=== PATIENT | female | born 1985 | race Hispanic/Latino ===

== ENCOUNTER 2021-04-03 17:13 | Emergency (ER) | payer OTHER, SELFPAY | END 2021-04-03 20:36 | disposition home or self-care (01) | LOC: CSHERS 17:13 | DX: O20.0 Threatened abortion (principal); O20.8 Other hemorrhage in early pregnancy; O24.419 Gestational diabetes mellitus in pregnancy, unspecified control; O10.911 Unspecified pre-existing hypertension complicating pregnancy, first trimester; O09.521 Supervision of elderly multigravida, first trimester; Z3A.13 13 weeks gestation of pregnancy ==

== ENCOUNTER 2021-05-19 19:32 | Day surgery (SDC) | payer OTHER ==
[2021-05-19 20:11] VITALS: BMI 38.1
[2021-05-19] MEDS ORDERED: Magnesium Sulfate 20 gm/500 ml 0 GM/0 ML BAG ONE (20:40)
[2021-05-19] MEDS ORDERED: hydrALAZINE 20 MG/ML VIAL ONE (20:47)
[2021-05-19] MEDS ORDERED: Labetalol HCl 100 MG/20 ML VIAL ONE (20:48)
[2021-05-19] MEDS ORDERED: Promethazine 25 MG TAB PO ONE (21:30)
[2021-05-19] MEDS ORDERED: Acetaminophen 500 MG TAB PO SCH (21:30)
[2021-05-19] MEDS ORDERED: diphenhydrAMINE 25 MG CAP PO SCH (21:30)
[2021-05-19] MEDS ORDERED: Sodium Chloride 0.9% 1,000 ML IV SCH (21:30)
[2021-05-19 21:53] LABS: #Eosinphils 0.1 10x3/uL (0.0-0.5); #Monocytes 0.3 10x3/uL (0.0-1.1); #Neutrophils 8.9 10x3/uL (1.5-8.4); %Basophils 0.2 % (0.0-2.0); %Eosinophils 0.9 % (0.0-6.0); %Lymphocytes 13.2 % (18.0-47.0); %Monocytes 3.2 % (0.0-10.0); %Neutrophils 82.1 % (40.0-75.0); Hemoglobin 10.1 g/dL (12.0-15.5); Mean Corpuscular HGB CONC 30.6 g/dL (32.0-36.0); Mean Corpuscular Volume 78.4 fl (81.6-98.3); Mean Platelet Volume 10.6 fl (7.4-10.4); Platelet Count 255 10x3/uL (150-450); RBC Distribution Width 19.9 % (11.5-14.5); Red Blood Cell (RBC) Count 4.21 10x6/uL (3.90-5.03); White Blood Cell (WBC) Count 10.8 10x3/uL (3.5-10.5)
[2021-05-19 22:07] LABS: ALT (SGPT) 10 U/L (8-55); AST (SGOT) 13 U/L (5-34); Albumin 3.7 g/dL (3.5-5.0); Alkaline Phosphatase 50 U/L (40-110); Anion Gap 15 mmol/L (10-20); BUN (Urea Nitrogen) 5 mg/dL (7.0-18.7); Bilirubin, Total 0.4 mg/dL (0.2-1.2); Calc. Creatinine Clearance 225 mL/min (70-130); Calcium 8.5 mg/dL (7.8-10.44); Carbon Dioxide 18 mmol/L (22-29); Chloride 108 mmol/L (98-107); Globulin 3.5 g/dL (2.4-3.5); Glucose 83 mg/dL (70-105); Potassium 3.6 mmol/L (3.5-5.1); Protein, Total 7.2 g/dL (6.0-8.3); Sodium 137 mmol/L (136-145)
[2021-05-19 22:50] LABS: Creatinine, Urine 135.99 mg/dL (47-110)
[2021-05-20 12:09] LABS: Hemoglobin A1c 5.4 % (4.0-6.0)
== END 2021-05-19 23:48 | disposition home or self-care (01) ==
LOC: CSHLD/OP 19:32
PROVIDERS: ATTEND Obstetrics & Gynecology
DX: O10.912 Unspecified pre-existing hypertension complicating pregnancy, second trimester (principal); O99.891 Other specified diseases and conditions complicating pregnancy; R51.9 Headache, unspecified; H53.459 Other localized visual field defect, unspecified eye; R10.11 Right upper quadrant pain; R10.2 Pelvic and perineal pain; O09.522 Supervision of elderly multigravida, second trimester; O99.212 Obesity complicating pregnancy, second trimester; Z3A.19 19 weeks gestation of pregnancy
CPT/HCPCS: 36415; 80053; 82570; 83036; 84156; 85025; 96360; 96361; 99284; J0360; J3475; Q0169

== ENCOUNTER 2021-06-30 23:32 | Day surgery (SDC) | payer OTHER ==
[2021-06-30 23:55] VITALS: BMI 39.1
[2021-07-01] MEDS ORDERED: hydrALAZINE 20 MG/ML VIAL SLOW IVP PRN (00:25)
[2021-07-01] MEDS ORDERED: Calcium Carbonate 500 MG ChewTAB PO PRN (00:26)
[2021-07-01] MEDS ORDERED: Lactated Ringer's 1,000 ML IV SCH (00:30)
[2021-07-01 01:36] LABS: Creatinine, Urine 33.39 mg/dL (47-110); Protein, Urine Random Quant Less than 10 mg/dL (1-14)
[2021-07-01 01:37] LABS: ALT (SGPT) 10 U/L (8-55); AST (SGOT) 16 U/L (5-34); Albumin 3.8 g/dL (3.5-5.0); Alkaline Phosphatase 70 U/L (40-110); Anion Gap 13 mmol/L (10-20); BUN (Urea Nitrogen) 8 mg/dL (7.0-18.7); Bilirubin, Total 0.1 mg/dL (0.2-1.2); Calc. Creatinine Clearance 231 mL/min (70-130); Calcium 8.9 mg/dL (7.8-10.44); Carbon Dioxide 19 mmol/L (22-29); Chloride 108 mmol/L (98-107); Globulin 3.4 g/dL (2.4-3.5); Glucose 103 mg/dL (70-105); Potassium 4.4 mmol/L (3.5-5.1); Protein, Total 7.2 g/dL (6.0-8.3); Sodium 136 mmol/L (136-145)
[2021-07-01 02:09] LABS: #Basophils 0.1 10x3/uL (0.0-0.2); #Eosinphils 0.2 10x3/uL (0.0-0.5); #Monocytes 0.7 10x3/uL (0.0-1.1); #Neutrophils 5.3 10x3/uL (1.5-8.4); %Basophils 0.6 % (0.0-2.0); %Eosinophils 1.8 % (0.0-6.0); %Lymphocytes 29.2 % (18.0-47.0); %Monocytes 7.7 % (0.0-10.0); %Neutrophils 60.4 % (40.0-75.0); Hemoglobin 10.2 g/dL (12.0-15.5); Mean Corpuscular HGB CONC 31.9 g/dL (32.0-36.0); Mean Corpuscular Hemoglobin 25.5 pg (27.0-33.0); Mean Platelet Volume 11.8 fl (7.4-10.4); Platelet Count 251 10x3/uL (150-450); RBC Distribution Width 18.7 % (11.5-14.5); White Blood Cell (WBC) Count 8.8 10x3/uL (3.5-10.5)
== END 2021-07-01 02:25 | disposition home or self-care (01) ==
LOC: CSHLD/OP 23:32
PROVIDERS: ATTEND Family Medicine
DX: O99.891 Other specified diseases and conditions complicating pregnancy (principal); R10.13 Epigastric pain; M54.6 Pain in thoracic spine; N89.8 Other specified noninflammatory disorders of vagina; R51.9 Headache, unspecified; O13.2 Gestational [pregnancy-induced] hypertension without significant proteinuria, second trimester; O09.522 Supervision of elderly multigravida, second trimester; Z3A.26 26 weeks gestation of pregnancy; Z79.899 Other long term (current) drug therapy
CPT/HCPCS: 80053; 82570; 84156; 85025; 87480; 87510; 87660; 96360; 96361; 99285

== ENCOUNTER 2021-07-27 09:43 | Day surgery (SDC) | payer OTHER, SELFPAY ==
[2021-07-27 10:24] VITALS: BMI 39.2
[2021-07-27] MEDS ORDERED: hydrALAZINE 20 MG/ML VIAL SLOW IVP PRN (11:37)
[2021-07-27] MEDS ORDERED: Metoclopramide HCl 10 MG/2 ML VIAL IVP SCH (11:45)
[2021-07-27] MEDS ORDERED: Lactated Ringer's 1,000 ML IV SCH (11:45)
[2021-07-27] MEDS ORDERED: diphenhydrAMINE 25 MG, Admixture Fee 1 EACH in Sodium Chloride 0.9% 50 ML IVPB SCH (12:00)
[2021-07-27] MEDS ORDERED: diphenhydrAMINE 50 MG/ML VIAL IVP SCH (12:00)
== END 2021-07-27 13:08 | disposition home or self-care (01) ==
LOC: CSHLD/OP 09:43
PROVIDERS: ATTEND Obstetrics & Gynecology
DX: O99.353 Diseases of the nervous system complicating pregnancy, third trimester (principal); G43.909 Migraine, unspecified, not intractable, without status migrainosus; O10.913 Unspecified pre-existing hypertension complicating pregnancy, third trimester; O24.410 Gestational diabetes mellitus in pregnancy, diet controlled; O23.43 Unspecified infection of urinary tract in pregnancy, third trimester; N39.0 Urinary tract infection, site not specified; O09.523 Supervision of elderly multigravida, third trimester; Z3A.29 29 weeks gestation of pregnancy; Z79.2 Long term (current) use of antibiotics; Z79.899 Other long term (current) drug therapy
CPT/HCPCS: 96360; 96372; 99282; J1200; J2765

== ENCOUNTER 2021-09-21 12:37 | Day surgery (SDC) | payer OTHER, SELFPAY ==
[2021-09-21 13:09] VITALS: BMI 40.0
[2021-09-21] MEDS ORDERED: hydrALAZINE 20 MG/ML VIAL SLOW IVP PRN (13:35)
[2021-09-21] MEDS ORDERED: Acetaminophen 500 MG TAB PO SCH (14:00)
[2021-09-21 14:09] LABS: #Eosinphils 0.1 10x3/uL (0.0-0.5); #Monocytes 0.4 10x3/uL (0.0-1.1); #Neutrophils 5.1 10x3/uL (1.5-8.4); %Basophils 0.3 % (0.0-2.0); %Eosinophils 1.2 % (0.0-6.0); %Lymphocytes 23.5 % (18.0-47.0); %Monocytes 5.1 % (0.0-10.0); %Neutrophils 69.6 % (40.0-75.0); Hemoglobin 10.1 g/dL (12.0-15.5); Mean Corpuscular HGB CONC 32.1 g/dL (32.0-36.0); Mean Corpuscular Hemoglobin 25.4 pg (27.0-33.0); Mean Corpuscular Volume 79.3 fl (81.6-98.3); Mean Platelet Volume 11.7 fl (7.4-10.4); Platelet Count 234 10x3/uL (150-450); RBC Distribution Width 16.4 % (11.5-14.5); Red Blood Cell (RBC) Count 3.97 10x6/uL (3.90-5.03); White Blood Cell (WBC) Count 7.3 10x3/uL (3.5-10.5)
[2021-09-21 14:25] LABS: ALT (SGPT) 15 U/L (8-55); AST (SGOT) 16 U/L (5-34); Albumin 3.4 g/dL (3.5-5.0); Alkaline Phosphatase 127 U/L (40-110); Anion Gap 15 mmol/L (10-20); BUN (Urea Nitrogen) 5 mg/dL (7.0-18.7); Bilirubin, Total 0.3 mg/dL (0.2-1.2); Calc. Creatinine Clearance 227 mL/min (70-130); Calcium 8.9 mg/dL (7.8-10.44); Carbon Dioxide 19 mmol/L (22-29); Chloride 106 mmol/L (98-107); Globulin 3.3 g/dL (2.4-3.5); Glucose 80 mg/dL (70-105); Potassium 3.7 mmol/L (3.5-5.1); Protein, Total 6.7 g/dL (6.0-8.3); Sodium 136 mmol/L (136-145)
[2021-09-21 14:47] LABS: Creatinine, Urine 89.86 mg/dL (47-110)
== END 2021-09-21 15:28 | disposition home or self-care (01) ==
LOC: CSHLD/OP 12:37
PROVIDERS: ATTEND Student in an Organized Health Care Education/Training Program
DX: O10.913 Unspecified pre-existing hypertension complicating pregnancy, third trimester (principal); O24.415 Gestational diabetes mellitus in pregnancy, controlled by oral hypoglycemic drugs; O09.523 Supervision of elderly multigravida, third trimester; O99.213 Obesity complicating pregnancy, third trimester; O99.013 Anemia complicating pregnancy, third trimester; D50.9 Iron deficiency anemia, unspecified; O36.63X0 Maternal care for excessive fetal growth, third trimester, not applicable or unspecified; Z3A.37 37 weeks gestation of pregnancy; Z79.899 Other long term (current) drug therapy
CPT/HCPCS: 80053; 82570; 84156; 85025

== ENCOUNTER 2021-09-23 18:00 | Inpatient (IN) | payer MEDICAID, OTHER ==
[2021-09-23 18:38] VITALS: BMI 40.0
[2021-09-23] MEDS ORDERED: Ondansetron PF 4 MG/2 ML Vial IVP PRN (21:20)
[2021-09-23] MEDS ORDERED: Acetaminophen 500 MG TAB PO PRN (21:20)
[2021-09-23] MEDS ORDERED: hydrALAZINE 20 MG/ML VIAL SLOW IVP PRN (21:20)
[2021-09-23] MEDS ORDERED: Calcium Gluc 4.6 MEQ/10 ML (100 MG/ML) SLOW IVP PRN (21:20)
[2021-09-23] MEDS ORDERED: Ibuprofen 800 MG TAB PO PRN (21:20)
[2021-09-23] MEDS ORDERED: Promethazine HCl 25 MG/ML VIAL IM PRN (21:20)
[2021-09-23] MEDS ORDERED: Lidocaine 1% (PF) 30 ML VIAL SC PRN (21:20)
[2021-09-23] MEDS ORDERED: NS w/ Oxytocin 30 units 500 ML IV SCH ×2 (21:30)
[2021-09-23] MEDS ORDERED: Misoprostol 200 MCG TAB PR PRN (21:58)
[2021-09-23 22:01] LABS: Platelet Count 256 10x3/uL (150-450)
[2021-09-23 22:02] LABS: Hemoglobin 10.5 g/dL (12.0-15.5); Mean Corpuscular HGB CONC 32.3 g/dL (32.0-36.0); Mean Corpuscular Hemoglobin 25.7 pg (27.0-33.0); Mean Corpuscular Volume 79.7 fl (81.6-98.3); Mean Platelet Volume 13.2 fl (7.4-10.4); RBC Distribution Width 16.3 % (11.5-14.5); Red Blood Cell (RBC) Count 4.08 10x6/uL (3.90-5.03)
[2021-09-23 22:20] LABS: ALT (SGPT) 16 U/L (8-55); AST (SGOT) 18 U/L (5-34); Albumin 3.5 g/dL (3.5-5.0); Alkaline Phosphatase 130 U/L (40-110); Anion Gap 15 mmol/L (10-20); BUN (Urea Nitrogen) 12 mg/dL (7.0-18.7); Bilirubin, Total 0.2 mg/dL (0.2-1.2); Calc. Creatinine Clearance 164 mL/min (70-130); Calcium 8.5 mg/dL (7.8-10.44); Carbon Dioxide 21 mmol/L (22-29); Chloride 104 mmol/L (98-107); Globulin 3.1 g/dL (2.4-3.5); Glucose 88 mg/dL (70-105); Potassium 4.4 mmol/L (3.5-5.1); Protein, Total 6.6 g/dL (6.0-8.3); Sodium 136 mmol/L (136-145)
[2021-09-23 22:41] LABS: Hep B Surf Ag Non-Reactive S/CO (NonReactive); Syphilis Antibody Nonreactive (Nonreactive); Syphilis Antibody Index 0.05 S/CO (<1.00 Non-Reactive)
[2021-09-23 22:59] LABS: HBSAg Index 0.15 S/CO (0-0.99)
[2021-09-23] MEDS: Lactated Ringer's 1,000 ML IV SCH (23:23)
[2021-09-24] MEDS ORDERED: NS w/ Oxytocin 30 units 500 ML IV SCH ×2 (00:30→09:00)
[2021-09-24] MEDS ORDERED: Fentanyl 2 mcg/Bup 0.1% Cadd 100 ML ONE (03:03)
[2021-09-24] MEDS: Lactated Ringer's 1,000 ML IV SCH (04:01)
[2021-09-24] MEDS ORDERED: Nitroglycerin 50 MG/250 ML BOT IVPB PRN (04:02)
[2021-09-24] MEDS ORDERED: Labetalol HCl 100 MG TAB PO SCH ×3 (04:30→21:00)
[2021-09-24] MEDS ORDERED: Nitroglycerin 50 MG/250 ML BOT 250 ML IVPB SCH (05:00)
[2021-09-24] MEDS ORDERED: Diphenoxylate HCl/Atropine Tablet PO PRN (07:41)
[2021-09-24] MEDS ORDERED: Carboprost 250 MCG/ML AMP ONE (07:45)
[2021-09-24] MEDS ORDERED: Carboprost 250 MCG/ML AMP IM SCH (07:45)
[2021-09-24] MEDS ORDERED: Boostrix 0.5 ML (Tdap) VIAL IM ONE (09:00)
[2021-09-24] MEDS ORDERED: hydrALAZINE 20 MG/ML VIAL SLOW IVP PRN (09:00)
[2021-09-24] MEDS ORDERED: Ondansetron PF 4 MG/2 ML Vial IVP PRN (09:00)
[2021-09-24] MEDS ORDERED: Milk Of Magnesia 30 ML UDCUP PO PRN (09:00)
[2021-09-24] MEDS ORDERED: diphenhydrAMINE 25 MG CAP PO PRN (09:00)
[2021-09-24] MEDS ORDERED: Benzocaine-Menthol 82.5 ML CAN TOP PRN (09:00)
[2021-09-24] MEDS ORDERED: Misoprostol 200 MCG TAB VAG PRN (09:00)
[2021-09-24] MEDS ORDERED: Preparation H Ointment 28 GM TUBE PR PRN (09:00)
[2021-09-24] MEDS ORDERED: Lanolin Ointment 7 GM TUBE TOP PRN (09:00)
[2021-09-24] MEDS ORDERED: Bisacodyl 10 MG SUPP PR PRN (09:00)
[2021-09-24] MEDS ORDERED: Ferrous Sulfate 325 MG TAB PO SCH (09:15)
[2021-09-24] MEDS: Docusate 100 MG CAP PO SCH ×2 (10:19→21:07)
[2021-09-24] MEDS: Prenatal Vitamin 1 TAB PO SCH (10:19)
[2021-09-24] MEDS: Ibuprofen 800 MG TAB PO SCH ×2 (13:41→21:07)
[2021-09-24] MEDS ORDERED: NIFEdipine XL 60 MG TAB PO SCH (15:00)
[2021-09-24] MEDS: NIFEdipine XL 30 MG TAB PO SCH (16:25)
[2021-09-24] MEDS: Ferrous Sulfate 325 MG TAB PO SCH (16:36)
[2021-09-25] MEDS: Ibuprofen 800 MG TAB PO SCH ×2 (05:31→14:22)
[2021-09-25 07:25] VITALS: BP 116/65; TEMP 98.5
[2021-09-25] MEDS: Ferrous Sulfate 325 MG TAB PO SCH (07:34)
[2021-09-25] MEDS: NIFEdipine XL 30 MG TAB PO SCH (08:19)
[2021-09-25] MEDS: Docusate 100 MG CAP PO SCH (08:19)
[2021-09-25] MEDS: Prenatal Vitamin 1 TAB PO SCH (08:19)
== END 2021-09-25 15:10 | disposition home or self-care (01) | DRG 806 ==
LOC: CSHLD 18:05 → CSHPP 09-24 09:45
PROVIDERS: ADMIT Obstetrics & Gynecology; ATTEND Obstetrics & Gynecology
PROC: 10E0XZZ Delivery of Products of Conception, External Approach (ICD-10-PCS; principal; 2021-09-24)
PROC: 3E0P7VZ Introduction of Hormone into Female Reproductive, Via Natural or Artificial Opening (ICD-10-PCS; 2021-09-24)
PROC: 3E033VJ Introduction of Other Hormone into Peripheral Vein, Percutaneous Approach (ICD-10-PCS; 2021-09-24)
DX: O10.92 Unspecified pre-existing hypertension complicating childbirth (principal); O72.2 Delayed and secondary postpartum hemorrhage; Z37.0 Single live birth; O24.425 Gestational diabetes mellitus in childbirth, controlled by oral hypoglycemic drugs; D50.9 Iron deficiency anemia, unspecified; O99.02 Anemia complicating childbirth; O99.214 Obesity complicating childbirth; E66.9 Obesity, unspecified; Z3A.38 38 weeks gestation of pregnancy; Z79.82 Long term (current) use of aspirin; Z79.899 Other long term (current) drug therapy; Z79.84 Long term (current) use of oral hypoglycemic drugs; O36.63X0 Maternal care for excessive fetal growth, third trimester, not applicable or unspecified
CPT/HCPCS: 36415; 36416; 80053; 81003; 82570; 84156; 84550; 85027; 86780; 86850; 86900; 86901; 87340; J0360; J2550; J2590; J3490; J7120